=== PATIENT | male | born 1990 | race Caucasian/White ===

== ENCOUNTER 2020-04-07 07:24 | Observation (INO) ==
--- OUTSIDE RECORDS SUMMARY | 2020-04-07 07:28 | External Medical Summary | Continuity of Care Document ---
:1990 Author Name Saeid Velazco, Provider Address Unavailable Unavailable , Care Team Providers Name Role Phone Nela Calzada Unavailable [email or web address] DOMONIQUE CHAO M.D., SHIRA Rios Unavailable Unavailable Unavailable Unavailable Unavailable Assessments Assessed Problems:Eosinophilic esophagitis Problems Eosinophilic esophagitis (530.13) (K20.0) Allergies and Adverse Reactions No Known Drug Allergies (Allergy) Medications Pantoprazole Sodium 40 MG Oral Tablet De layed Release; TAKE 1 TABLET TWICE DAILY 30 MINUTES BEFORE BREAKFAST AND DINNER. STANFORD Pollard Start: 2015 Quantity: 180 Refills: 3 ZyrTEC Allergy 10 MG Oral Capsule Start: 25-Apr-2018 Refills: 0 Procedures History of Oral Surgery Tooth Extraction Status: Completed History of Diagnostic Esophagogastroduodenoscopy Status: Completed Immunizations Immunizations not documented Family History Grandparent Family history of diabetes mellitus (V18.0) (Z83.3) Status: Active Family history of cardiac disorder (V17.49) (Z82.49) Status: Active Grandfather Family history of myocardial infarction (V17.3) (Z82.49) Sta tus: Active Family history of Colon cancer (153.9) (C18.9) Status: Activ e Mother No pertinent family history (V49.89) (Z78.9) Status: Active Father No pertinent family history (V49.89) (Z78.9) Status: Active Social History - Smoking Status Never smoked tobacco Plan of Treatment Planned Observations Planned Goals not documented Results No Known Results Results not documented Encounters Appointment; Nela Pollard CRNP 25-Apr-2018 16:00 Encounter Diagnosis: Problem not documented Appointment; Nela Pollard CRNP 24-Apr-2019 16:00 Encounter Diagnosis: Problem not documented
--- OUTSIDE RECORDS SUMMARY | 2020-04-07 07:28 | External Medical Summary | Continuity of Care Document ---
:1990 Author Name Saeid Velazco, Provider Address Unavailable Unavailable , Care Team Providers Name Role Phone Nela Calzada Unavailable [email or web address] DOMONIQUE CHAO M.D., SHIRA Rios Unavailable Unavailable Unavailable Unavailable Unavailable Assessments Assessed Problems:Eosinophilic esophagitis Problems Eosinophilic esophagitis (530.13) (K20.0) Allergies and Adverse Reactions No Known Drug Allergies (Allergy) Medications ZyrTEC Allergy 10 MG Oral Capsule Start: 25-Apr-2018 Refills: 0 Pantoprazole Sodium 40 MG Oral Tablet De layed Release; TAKE 1 TABLET TWICE DAILY 30 MINUTES BEFORE BREAKFAST AND DINNER. STANFORD Pollard Start: 2015 Quantity: 180 Refills: 3 Procedures History of Oral Surgery Tooth Extraction [...]
[2020-04-07] MEDS ORDERED: DEXAMETHASONE SOD PHOSPHATE 10 MG in SYRINGE 0 ML IV STA (08:10)
[2020-04-07] MEDS ORDERED: GLUCAGON 1 ML IV ONE (08:10)
[2020-04-07] MEDS ORDERED: DiphenhydrAMINE HCL 50 MG/ML VIAL IV STA (08:10)
[2020-04-07 08:23] LABS: Basophils # (auto) 0.03 K/uL (0-0.2); Basophils % (auto) 0.3 %; Eosinophils % (auto) 2.8 %; Hemoglobin 15.5 g/dL (14.0-18.0); Immature Granulocytes # (auto) 0.02 K/uL (0.00-0.02); Immature Granulocytes % (auto) 0.2 %; Lymphocytes # (auto) 1.62 K/uL (1.2-3.4); Lymphocytes % (auto) 15.2 %; Mean Corpuscular Hemoglobin 27.9 pg (25-34); Mean Corpuscular Hgb Conc 33.7 g/dL (32-36); Mean Corpuscular Volume 82.9 fL (80-100); Mean Platelet Volume 9.7 fL (7.4-10.4); Monocytes # (auto) 0.55 K/uL (0.11-0.59); Monocytes % (auto) 5.2 %; Neutrophils # (auto) 8.14 K/uL (1.4-6.5); Neutrophils % (auto) 76.3 %; Platelet Count 314 K/uL (130-400); RDW Coefficient of Variation 13.1 % (11.5-14.5); Red Blood Count 5.55 M/uL (4.7-6.1); White Blood Count 10.66 K/uL (4.8-10.8)
[2020-04-07] MEDS: SODIUM CHLORIDE 0.9% 1000ML 1,000 ML IV SCH ×4 (08:26→15:30)
--- NOTE | 2020-04-07 08:28 | Emergency Department Note ---
Impression & Plan Esophageal obstruction due to food impaction, Eosinophilic esophagitis ED Provider Note NAME: JAMES PATEL AGE: 30 SEX: M ARRIVES VIA: Walk-In INFORMANT: Patient, ED PROVIDER(S): Vasiliy Medrano MD CHIEF COMPLAINT: Food bolus. PLAN: Disposition: Admit MEDICAL DECISION MAKING: The patient is a pleasant 30-year-old gentleman with a past medical history of eosinophilic esophagitis and history of food boluses requiring Endo scopic removal who presents emergency department with acute onset of a food bolus last night at 10 PM when he was eating a sandwich and has subsequently been unable to pass it throughout the night where he is unable to swallow his own saliva. He denies any difficulty breathing. He denies any changes in voice though he feels it is difficult to talk given his secretions. Prior to this he denies any illness and denies fevers, chills, cough, congestion, nausea, vomiting, diarrhea, urinary symptoms. Of note, the patient's partner does report his prior history of vasovagal sensitivity with his food bolus due to the po sitioning of his food bolus. On arrival patient uncomfortable no acute distress, afebrile stable vital signs. He has no stridor. He has no tongue elevation or trismus though he is unable to swallow his saliva. Exam is otherwise unremarkable. Patient was discussed with GI on-call, Dr. Lazaro, [facility], who recommends admission to medicine with plan for endoscopic removal later this morning following another case. Case was d/w Vanessa Garrett, [facility], with Dr. Palacios, [facility] hospitalist who will evaluate the patient for admission. Blood work, chest x-ray and EKG were ordered and pending. EKG unremarkable without evidence of acute ischemia. CXR negative. WBC, H/H, platelets wnl. Chemistry without acidosis. LFTs and electrolytes unremarkable. Patient was ordered for IVF and dexamethasone and diphenhydramine to minimize swelling. Triage Nursing notes reviewed and agree them. Additional history obtained from partner at the bedside. Prior medical records reviewed Vital Signs: reviewed and remarkable for no significant abnormalities Differential diagnosis: Viral syndrome, tonsillitis, streptococcal pharyngitis, mononucleosis, peritonsillar abscess, retropharyngeal abscess, otitis, pneumonia, influenza, as well as other pathologies. ER treatment provided: See below. Diagnostics interpreted by me: ECG: NSR, 82bpm, no ectopy, normal axis, no overt ST elevation of depression. Cardiac Monitoring: An order for continuous cardiac monitoring was placed and demonstrated NSR, 82bpm, no ectopy Laboratory studies: See below Imaging studies: SINGLE VIEW CHEST CLINICAL HISTORY: Retained food bolus. FINDINGS: An AP, portable, upright chest radiograph is compared to chest x-ray and chest CT dated 06/29/2016. The cardiomediastinal silhouette is unremarkable. The lungs and pleural spaces are clear. No pneumothorax is seen. The bony thorax is grossly intact. No radiodense foreign body is identified. IMPRESSION: No active disease in the chest. Consultation(s): GI on-call, Del Hernandez, [facility], with Dr. Whalen, [facility] hospitalist HPI: The patient is a pleasant 30-year-old gentleman with a past medical history of eosinophilic esophagitis and history of food boluses requiring Endo scopic removal who presents emergency department with acute onset of a food bolus last night at 10 PM when he was eating a sandwich and has subsequently been unable to pass it throughout the night where he is unable to swallow his own saliva. He denies any difficulty breathing. He denies any changes in voice though he feels it is difficult to talk given his secretions. Prior to this he denies any illness and denies fevers, chills, cough, congestion, nausea, vomiting, di arrhea, urinary symptoms. Of note, the patient's partner does report his prior history of vasovagal sensitivity with his food bolus due to the positioning of his food bolus. ROS: See above HPI for pertinent positives & negatives. A total of 10 systems reviewed and were otherwise negative. PAST MEDICAL HISTORY:See Below PAST SURGICAL HISTORY:See Below FAMILY HISTORY:See Below SOCIAL HISTORY:See Below HOME MEDICATIONS:See Below ALLERGIES:See Below VITALS:See Below PHYSICAL EXAMINATION: ED COURSE: Critical Care: I have personally spent greater than 35 minutes of critical care time in the direct management of this patient. This includes bedside care, interpretation of diagnostic studies, and testing, discussion with consultants, patient, and family members, and other required patient management activities. This 35 minut es is in excess of all separately billable procedures. Vasiliy Medrano MD Past Med/Surg History Medical History Eosinophilic esophagitis (Acute) Esophageal obstruction due to food impaction (Acute) Social History Preferred Language: Jamaican Communication Ability: Effective Electrical Tester Required: No Beliefs That Will Affect Care: None Current Living Situation: Spouse Feels Safe at Home: Yes Smoking Status: Never smoker Second Hand Exposure: No ; Hx Alcohol Use: Yes Hx Substance Use: No Allergies Allergies Allergy/AdvReac Type Severity Reaction Status Date / Time No Known Allergies Allergy Unknown Unverified 04/07/20 08:05 Home Meds Home Medications Medication Instructions Recorded Confirmed diphenhydramine HCl [Benadryl] 25 mg PO Q6H PRN 04/07/20 04/07/20 multivitamin 1 tab PO DAILY 04/07/20 04/07/20 Previous Rx's Medication Instructions Recorded pantoprazole 40 mg tablet,delayed 40 mg PO BID #180 tab 11/07/19 release Results & Data (ED) Vital Signs Vital Signs - 24 hr 04/07/20 07:31 04/07/20 08:10 Temperature 37.0 C Temperature Source Oral Pulse Rate 98 H Respiratory Rate 18 Blood Pressure 135/82 Blood Pressure Mean 99 Pulse Oximetry 97 Oxygen Delivery Method Room Air Room Air Sepsis Recent Fever Within 48 Hours No Sepsis New/Unexplained Change in Mental Status No Sepsis Action Taken by Nursing No Action Required Laboratory Data Attestation: I reviewed the patient's lab results. Result diagrams: 04/07/20 08:10 04/07/20 08:10 Lab Results 04/07/20 04/07/20 04/07/20 Range/Units 08:10 08:10 08:10 WBC 10.66 (4.8-10.8) K/uL RBC 5.55 (4.7-6.1) M/uL Hgb 15.5 (14.0-18.0) g/dL Hct 46.0 (42-52) % MCV 82.9 (80-100) fL MCH 27.9 (25-34) pg MCHC 33.7 (32-36) g/dL RDW Std Deviation 39.0 (36.4-46.3) fL RDW Coeff of Jojo 13.1 (11.5-14.5) % Plt Count 314 (130-400) K/uL MPV 9.7 (7.4-10.4) fL Immature Gran % (Auto) 0.2 % Neut % (Auto) 76.3 % Lymph % (Auto) 15.2 % [place] % (Auto) 5.2 % Eos % (Auto) 2.8 % Baso % (Auto) 0.3 % Immature Gran # (Auto) 0.02 (0.00-0.02) K/uL Neut # (Auto) 8.14 H (1.4-6.5) K/uL Lymph # (Auto) 1.62 (1.2-3.4) K/uL [place] # (Auto) 0.55 (0.11-0.59) K/uL Eos # (Auto) 0.30 (0-0.5) K/uL Baso # (Auto) 0.03 (0-0.2) K/uL PT 10.9 (9.0-12.0) Seconds INR 1.0 (0.9-1.1) Sodium 141 (136-145) mmol/L Potassium 4.4 (3.5-5.1) mmol/L Chloride 109 H (98-107) mmol/L Carbon Dioxide 27 (21-32) mmol/L Anion Gap 5.0 (3-11) BUN 16 (7-18) mg/dl Creatinine 1.13 (0.6-1.4) mg/dl Est Cr Clr Drug Dosing 96.5 ml/min Est GFR ( Amer) 101.2 Est GFR (Non-Af Amer) 87.4 BUN/Creatinine Ratio 13.7 (10-20) Glucose 107 H (70-99) mg/dl Calcium 9.6 (8.5-10.1) mg/dl Total Bilirubin 0.3 (0.2-1) mg/dl AST 17 (15-37) U/L ALT 33 (12-78) U/L Alkaline Phosphatase 79 (45-117) U/L Total Protein 8.4 H (6.4-8.2) gm/dl Albumin 4.6 (3.4-5.0) gm/dl Globulin 3.8 (2.5-4.0) gm/dl Albumin/Globulin Ratio 1.2 (0.9-2) Lipase 94 (73-393) U/L Administered Medications Discontinued Medications Diphenhydramine HCl (Benadryl) 25 mg IV NOW STA Stop: 04/07/20 08:11 Last Admin: 04/07/20 08:26 Dose: 25 mg Documented by: [id number] Sodium Chloride (Nss 1000ml) 1,000 mls @ 125 mls/hr IV .Q8H TIERRA Stop: 05/07/20 08:14 Last Infusion: 04/07/20 15:34 Dose: 0 mls/hr Documented by: [id number] Infusion: 04/07/20 15:33 Dose: 0 mls/hr Documented by: [id number] Admin: 04/07/20 10:15 Dose: 125 mls/hr Documented by: [id number] Infusion: 04/07/20 10:15 Dose: 125 mls/hr Documented by: [id number] Admin: 04/07/20 08:26 Dose: 125 mls/hr Documented by: [id number] Glucagon (Glucagen) 1 mls @ 1 mls/min IV ONE ONE Stop: 04/07/20 08:11 Last Admin: 04/07/20 08:26 Dose: 1 mls/min Documented by: [id number] Dexamethasone Sodium Phosphate (10 mg/ Syringe) 2.5 mls @ 1 mls/min IV NOW STA Stop: 04/07/20 08:12 Last Admin: 04/07/20 10:15 Dose: 1 mls/min Documented by: [id number] Sodium Chloride (Nss 1000ml) 1,000 mls @ 125 mls/hr IV .Q8H TIERRA Stop: 04/07/20 21:34 Last Infusion: 04/07/20 19:52 Dose: 0 mls/hr Documented by: [id number] Admin: 04/07/20 15:30 Dose: 125 mls/hr Documented by: [id number] Infusion: 04/07/20 15:30 Dose: 125 mls/hr Documented by: [id number] Admin: 04/07/20 10:10 Dose: 125 mls/hr Documented by: [id number] Multivitamins (Multivitamin Tab) 1 tab PO DAILY TIERRA Stop: 05/07/20 09:34 Last Admin: 04/07/20 12:07 Dose: Not Given Documented by: [id number] Pantoprazole Sodium (Protonix) 40 mg PO BID TIERRA Stop: 05/07/20 09:34 Last Admin: 04/07/20 12:07 Dose: Not Given Documented by: [id number] Blood Pressure Blood Pressure Findings: Normal blood pressure Discharge Plan Visit Data *Final* Discharge Date/Time: 04/07/20 09:01 Chief Complaint: Vomiting Stated Complaint: VOMITING,UNABLE TO SWALLOW ED Provider: Vasiliy Medrano Discharge Problem: Esophageal obstruction due to food impaction, Eosinophilic esophagitis Patient Disposition: Admitted As Inpatient Discharge Instructions Interventions: ED Discharge Assessment Last Done: 04/07/20 09:01
[2020-04-07 08:35] LABS: Prothrombin Time 10.9 Seconds (9.0-12.0)
[2020-04-07 08:40] LABS: Albumin Level 4.6 gm/dl (3.4-5.0); BUN Creatinine Ratio 13.7 (10-20); Calcium 9.6 mg/dl (8.5-10.1); Creatinine Clr Calc Pharmacy 96.5 ml/min; Est GFR (African American) 101.2; Est GFR (Non-African American) 87.4; Potassium 4.4 mmol/L (3.5-5.1)
[2020-04-07 08:43] LABS: Albumin Globulin Ratio 1.2 (0.9-2); Bilirubin,Total 0.3 mg/dl (0.2-1); Globulin 3.8 gm/dl (2.5-4.0); Total Protein 8.4 gm/dl (6.4-8.2)
--- NOTE | 2020-04-07 08:49 | History & Physical Report ---
Date of Service April 07, 2020 Assessment & Plan (1) Esophageal obstruction due to food impaction: - Admit to med/surg for observation - GI consulted - Dr. Lazaro to perform EGD today for removal of food impaction/bolus - NPO - Given benadryl 25 mg IV and decadron 10 mg IV in the ER, pt had taken benadryl orally last evening when he felt food bolus not clearing. Does not use benadryl routinely. - Continue IVF - Pain control, antiemetics IV - If food impaction cleared and ok with GI after EGD, may trial clears and advance diet as tolerates, will consider discharge, monitor - Follows with Dr. Garnett as outpatient, will need follow up within 1-2 weeks - CXR completed- (2) Eosinophilic esophagitis: - Hx of such since a child, no family hx of such. 4 yo son also has been diagnosed with this. - Continue panotprazole 40 mg BID, pt reports had been taking once daily as reactions had been few and far between. - Rehabilitation Tech referral recommended - has not previously had this done (3) DVT prophylaxis: - teds CODE: Full code Dispo: From home, possible DC within 24 hours. History of Present Illness Primary Care Provider: David Radford MD This is a 30 yo M with PMHx of eosinophilic esophagitis, who presents after consuming a sandwich last evening, with inability to swallow, dry heaves and agnes oling at the mouth. He reports this worsened around 10pm last night. He took a benadryl tablet to help with symptoms. He continued to have excessive drooling and had to spit it out all night into a bucket, hoping that this would clear on its own, this morning came to the ER. He had a similar episode in 2016 where he was also eating a sandwich, and food bolus occurred. He was brought into the hospital for an EGD to remove the full bolus but it cleared on its own on the way to have a EGD completed. He has suffered from this multiple times as a child however this is only the second time that he has presented to the ER due to not clearing. His is present at bedside and supplies the majority of the history. He denies any difficulty breathing, or tightness in the throat. He denies any changes in medications recently. Pt follows with Dr. Garnett as an oupt and takes omeprazole daily. He has had some recent seasonal allergies, but otherwise has been in his normal state of health. He denies any known family history of eosinophilic esophagitis, esophageal cancers, stomach cancers, crohns disease, ulcerative colitis, achalasia. notes their oldest son, 4 yo, has eosinophilic esophagitis though. He himself has not had allergy testing in the past. Allergies Allergy/AdvReac Type Severity Reaction Status Date / Time No Known Allergies Allergy Unknown Unverified 04/07/20 08:05 Home Medications Home Medications Medication Instructions Recorded Confirmed Type pantoprazole 40 mg tablet,delayed 40 mg PO BID #180 tab 11/07/19 04/07/20 Rx release diphenhydramine HCl [Benadryl] 25 mg PO Q6H PRN 04/07/20 04/07/20 History multivitamin 1 tab PO DAILY 04/07/20 04/07/20 History Past Med/Surg History Social History Preferred Language: Slovenian Communication Ability: Effective Driller'S Assistant Required: No Beliefs That Will Affect Care: None Current Living Situation: Spouse Feels Safe at Home: Yes Smoking Status: Never smoker Second Hand Exposure: No ; Hx Alcohol Use: Yes Hx Substance Use: No Review of Systems Review of Systems: Constitutional: No fever, sweats or chills Eyes: No diplopia, no worsening or blurred vision ENT: normal hearing, + trouble swallowing, + drooling excessively Respiratory: No cough, sputum, dyspnea at rest or on exertion Cardiovascular: No chest pain, tightness or palpitations Abdomen: No pain, + dry heaves due to inability to swallow, no vomiting, diarrhea or constipation Musculoskeletal: No joint pain, calf pain, swelling Neurologic: No weakness, numbness/tingling, or balance problems Psychiatric: No anxiety or depression Skin: No rash or itch Physical Exam Physical Exam: General: awake, alert, no apparent distress Head: Normocephalic, atraumatic ENT: PERRL, EOMI, no pharyngeal exudate, + mild erythema in posterior pharynx, mucous membranes moist, + excessive salivation, clear frothy, no blood, when asked to swallow he can but then proceeds to dry heave. No cervical lymphadenopathy. Chest: Clear to auscultation, on room air, no adventitious breath sounds, no respiratory distress. Cardiac: Regular rate and rhythm, no murmur, no JVD, normal peripheral pulses, good capillary refill Abdominal: NABS x 4 quadrants, soft, nontender to palpation, no rebound, guarding or tenderness Extremities: Normal inspection, no peripheral edema or erythema, calfs nontender to palpation Psych: Normal mood and affect Neuro: AAO x 3, strength intact bilaterally and rated 5/5, no motor deficits, speech is clear, no peripheral sensory deficits Results & Data Results & Data ([facility]) Vital Signs (Past 12 Hours) Vital Signs Temp Pulse Pulse Resp BP BP Pulse Ox 04/07/20 08:38 81 20 105/78 96 04/07/20 07:31 37.0 C 98 H 18 135/82 97 Diagnostic Findings SINGLE VIEW CHEST CLINICAL HISTORY: Retained food bolus. FINDINGS: An AP, portable, upright chest radiograph is compared to chest x-ray and chest CT dated 06/29/2016. The cardiomediastinal silhouette is unremarkable. The lungs and pleural spaces are clear. No pneumothorax is seen. The bony thorax is grossly intact. No radiodense foreign body is identified. IMPRESSION: No active disease in the chest. ACT 112: Negative or not required by law. Electronically signed by: Enrique Del Angel M.D. 04/07/2020 9:04 AM ECG Additional Comments: 07-APR-2020 08:33:31 [facility]-EDSTAT ROUTINE RETRIEVAL Normal sinus rhythm Normal ECG When compared with ECG of 29-JUN-2016 12:01, No significant change was found 25mm/s 10mm/mV 150Hz 9.0.9 12SL 241 NOHELIA: 16 Referred by: REFERRED SELF Unconfirmed Vent. rate 82 BPM AL interval 158 ms QRS duration 88 ms QT/QTc 386/450 ms P-R-T axes 41 74 41 Code Status & VTE Plan Code Status Full code - discussed with pt and at bedside. VTE Prophylaxis Plan VTE Prophylaxis will be ordered: Yes Supervising Physician Co-Signing Physician Notes Patient was seen and examined independently I discussed the case with Vanessa BETANCUR 30-year-old male history of eosinophilic esophagitis who presents after having a sandwich with feelings he cannot swallow. Patient's been spitting up saliva. Patient has what appears to be of food impaction in his esophagus after evaluation in the emergency department. Attempts to remove this food impaction were done with glucagon without relief. Patient will be seen by gastroenterology for likely endoscopy to remove food bolus. Otherwise patient is without discomfort he is holding a spit up bag and spitting saliva into the bag. Vital signs are reviewed Cardiac exam is regular no murmurs are heard Lungs are currently clear Abdomen normoactive bowel sounds soft and nontender Suspected food impaction with need for endoscopy. Reports it is eosinophilic esophagitis patient continues on proton pump inhibitor and will follow-up with gastroenterology after this procedure hopeful to be discharged today I reviewed pertinent past medical social family history and also the plan of care and agree with the plan of care. Any exceptions will be noted below PG Care Time/CCT Total # of Minutes Spent Total Time Spent with Patient: Total time spent is greater than 50% in coordination of care (as documented) at patient's floor/unit and/or counseling patient: Coding Level of Care Code 46173 OBS Care - Level 3 Diagnoses Esophageal obstruction due to food impaction K22.2; T18.128A Eosinophilic esophagitis K20.0 DVT prophylaxis Z29.9
--- NOTE | 2020-04-07 09:06 | XRay Report ---
SINGLE VIEW CHEST CLINICAL HISTORY: Retained food bolus. FINDINGS: An AP, portable, upright chest radiograph is compared to chest x-ray and chest CT dated 06/18. The cardiomediastinal silhouette is unremarkable. The lungs and pleural spaces are clear. No pneumothorax is seen. The bony thorax is grossly intact. No radiodense foreign body is identified. IMPRESSION: No active disease in the chest. ACT 112: Negative or not required by law. Electronically signed by: Enrique Del Angel M.D. 04/07/2020 9:04 AM
[2020-04-07] MEDS ORDERED: ONDANSETRON INJ 2 MG/ML 2 ML VIAL IV PRN ×2 (09:35→13:31)
[2020-04-07] MEDS ORDERED: PANTOprazole 40 MG TAB PO SCH (09:35)
[2020-04-07] MEDS ORDERED: MULTIVITAMIN TAB PO SCH (09:35)
[2020-04-07] MEDS ORDERED: MoRPHine SULFATE 2 MG/ML CARP IV PRN (09:35)
--- NOTE | 2020-04-07 11:07 | Gastrointestinal Consultation ---
Date of Consultation April 07, 2020 Assessment & Plan (1) Eosinophilic esophagitis: (2) Esophageal obstruction due to food impaction: Proceed with EGD. risks/benefits and procedure discussed with patient, who agrees to proceed continue PPI NPO History of Present Illness Attending Physician: Levy Palacios MD 30 YO male with hx EOE presents with dysphagia. He consumed a turkey sandwich last night and has had dysphagia since then, also with vomiting and drooling. Inability to swallow secretions. This has happened before to him in 2016 where he had an EGD. He is on daily PPI. Labs reviewed, VSS. Allergies Allergy/AdvReac Type Severity Reaction Status Date / Time No Known Allergies Allergy Unknown Unverified 04/07/20 08:05 Home Medications Home Medications Medication Instructions Recorded Confirmed Type pantoprazole 40 mg tablet,delayed 40 mg PO BID #180 tab 11/07/19 04/07/20 Rx release diphenhydramine HCl [Benadryl] 25 mg PO Q6H PRN 04/07/20 04/07/20 History multivitamin 1 tab PO DAILY 04/07/20 04/07/20 History Patient History Social History Preferred Language: Russian Communication Ability: Effective Crushing Foreman Required: No Beliefs That Will Affect Care: None Current Living Situation: Spouse Other Information That Helps Us Care for You: No Feels Safe at Home: Yes Safety Concerns: Feels Safe At This Time Smoking Status: Never smoker Do You Dip or Chew Tobacco: No ; Second Hand Exposure: No ; Tobacco Cessation Education Requested by Patient: No Hx Alcohol Use: Yes Hx Substance Use: No Review of Systems Constitutional: no fever, no chills and no weight loss Eyes: as per Subjective / HPI Ear, Nose, Mouth, Throat: as per Subjective / HPI Respiratory: no dyspnea and no dyspnea on exertion Cardiovascular: no chest pain and no palpitations Gastrointestinal: as per Subjective / HPI Musculoskeletal: no joint pain and no swelling Integumentary: no rash and no lesions Neurologic: no numbness and no paresthesia Psychiatric: no depression and no anxiety Endocrine: no fatigue Hematologic / Lymphatic: no easy bleeding and no easy bruising Physical Exam Constitutional: WD/WN, vitals as above Eyes: EOM intact bilaterally Neck: normal visual inspection Respiratory: normal respiratory effort, lungs clear to auscultation Cardiovascular: RRR, no murmur, no edema Gastrointestinal (Abdomen): Inspection/Auscultation: abdomen normal to inspection; abdomen not distended Percussion/Palpation: abdomen soft; abdomen nontender and no hepatosplenomegaly Musculoskeletal: Extremities: no cyanosis Gait: normal gait Skin: no rashes, warm and dry Neurologic: moves all extremities Psychiatric: A+Ox3, euthymic affect Results & Data ([facility]) Vital Signs (Past 12 Hours) Vital Signs Temp Pulse Pulse Resp BP BP Pulse Ox 04/07/20 09:01 36.5 C 85 16 119/54 L 96 04/07/20 08:38 81 20 105/78 96 04/07/20 07:31 37.0 C 98 H 18 135/82 97 PG Care Time/CCT Total # of Minutes Spent Total Time Spent with Patient: Total time spent is greater than 50% in coordination of care (as documented) at patient's floor/unit and/or counseling patient: Coding Level of Care Code 25762 Office/OBS Consult Lvl 4 Diagnoses Eosinophilic esophagitis K20.0 Esophageal obstruction due to food impaction K22.2; T18.128A
[2020-04-07] MEDS ORDERED: PROPOFOL IV EMULSION 10 MG/ML 20 ML VIAL IV ONE (11:47)
[2020-04-07] MEDS ORDERED: fentaNYL citrate 100 MCG/2 ML VIAL ONE (11:47)
[2020-04-07] MEDS ORDERED: ONDANSETRON INJ 2 MG/ML 2 ML VIAL ONE (11:47)
[2020-04-07] MEDS ORDERED: SUCCINYLCHOLINE CHLORIDE 20 MG/ML 10 ML VIAL IV ONE (11:47)
[2020-04-07] MEDS ORDERED: ROCURONIUM BROMIDE 10 MG/ML 5 ML VIAL IV ONE (11:47)
[2020-04-07] MEDS ORDERED: LIDOCAINE HCL 2% 2 ML VIAL/AMP(20MG/ML) INFIL ONE (11:47)
--- NOTE | 2020-04-07 13:30 | Anesthesiology Consultation ---
Date of Service April 07, 2020 Assessment & Plan ASA ASA3 Proposed Anesthesia Anesthesia Type: General Risk / Benefits Reviewed With: PT / POA / Parent / Guardian, Accepts Plan and Informed Consent Obtained History Surgery Operation Date: 04/07/20 13:00 Proposed Procedures p EGD Foreign Body Removal - Bhavik Lazaro MD Height/Weight Height: 5 ft 9 in Weight: 74 kg Allergies Allergy/AdvReac Type Severity Reaction Status Date / Time No Known Allergies Allergy Unknown Unverified 04/07/20 08:05 Medications Home Medications Medication Instructions Recorded Confirmed Last Taken pantoprazole 40 mg tablet,delayed 40 mg PO BID #180 tab 11/07/19 04/07/20 04/06/20 release diphenhydramine HCl [Benadryl] 25 mg PO Q6H PRN 04/07/20 04/07/20 04/06/20 23:00 25 mg multivitamin 1 tab PO DAILY 04/07/20 04/07/20 04/06/20 Active Medications Generic Name Dose Route Start Last Admin Trade Name Freq PRN Reason Stop Dose Admin Sodium Chloride 1,000 mls @ 125 mls/hr 04/07/20 09:35 04/07/20 10:10 Nss 1000ml IV 04/07/20 21:34 125 mls/hr .Q8H TIERRA Administration Multivitamins 1 tab 04/07/20 09:35 04/07/20 12:07 Multivitamin Tab PO 05/07/20 09:34 Not Given DAILY TIERRA Pantoprazole Sodium 40 mg 04/07/20 09:35 04/07/20 12:07 Protonix PO 05/07/20 09:34 Not Given BID TIERRA NPO Date Last Intake of Fluids: 04/07/20 Time Last Intake of Fluids: 00:00 Date Last Intake of Solids: 04/07/20 Time Last Intake of Solids: 00:00 Exercise / Class Metabolic Activity II 4-5 Yardwork/Stairs/Walk up hill Past Anesthesia History No Hx of Anesthesia Complications and No Family Hx of Anesthesia Complications History of PONV No Hx of PONV and No Hx of Motion Sickness Social History Smoking Status: Never smoker Do You Dip or Chew Tobacco: No Hx Alcohol Use: Yes alcohol intake frequency: other Alcohol Intake Frequency Comment: occasionally, 1 to 2 a week Hx Substance Use: No substance use type: does not use Review of Systems denies fever/cough/ colds/ chest pain/ SOB/ LEAH Constitutional: no fever and no chills Respiratory: no cough and no dyspnea denies LEAH Cardiovascular: no chest pain and no dyspnea on exertion Physical Exam Vital Signs Last Vital Signs Temp 36.5 C 04/07/20 09:01 Pulse 85 04/07/20 09:01 Resp 16 04/07/20 09:01 BP 119/54 L 04/07/20 09:01 Pulse Ox 96 04/07/20 09:01 ENMT Mouth: no TMJ abnormality and no dentition abnormality Thyromental Distance: > or= 3.5 Finger Breadths Mallampati Class: II Neck + facial hair; neck extension not limited Respiratory normal respiratory effort; no respiratory distress Auscultation: lungs clear to auscultation bilaterally Cardiovascular Rate/Rhythm: regular rate and regular rhythm Neurologic moves all extremities Psychiatric Orientation: alert and oriented x 3 Testing Laboratory Results 04/07/20 08:10 04/07/20 08:10 PT 10.9 Seconds (9.0-12.0) 04/07/20 08:10 INR 1.0 (0.9-1.1) 04/07/20 08:10 Blood Type O Positive 04/07/20 08:25 Antibody Screen NEGATIVE 04/07/20 08:25
[2020-04-07] MEDS ORDERED: ePHEDrine sulfate 50 MG/ML AMP IV PRN (13:31)
[2020-04-07] MEDS ORDERED: HYDROmorphone INJ 2 MG/ML SYR/VIAL IV PRN (13:31)
[2020-04-07] MEDS ORDERED: fentaNYL citrate 100 MCG/2 ML VIAL IV PRN (13:31)
[2020-04-07] MEDS ORDERED: ATROPINE SULFATE 0.1 MG/ML 10ML SYR IV PRN (13:31)
--- NOTE | 2020-04-07 14:35 | Electrocardiogram Report ---
Test Reason : Blood Pressure : / mmHG Vent. Rate : 082 BPM Atrial Rate : 082 BPM P-R Int : 158 ms QRS Dur : 088 ms QT Int : 386 ms P-R-T Axes : 041 074 041 degrees QTc Int : 450 ms Normal sinus rhythm Normal ECG When compared with ECG of 29-JUN-2016 12:01, No significant change was found Confirmed by Hebert Ellis ([id number]) on 04/07/2020 2:34:35 PM Referred By: REFERRED SELF Confirmed By:Hebert Ellsi
--- NOTE | 2020-04-07 14:41 | GI REPORT ---
Patient Name: Phillip Pathak Procedure Date: 04/07/2020 1:54 PM Date of : 1990 Admit Type: Inpatient Age: 30 Gender: Male Attending MD: Bhavik Lazaro MD Procedure: Upper GI endoscopy Providers: Bhavik Lazaro MD Referring MD: Levy Palacios Indications: Dysphagia, Odynophagia, Foreign body in the esophagus Medicines: Monitored Anesthesia Care Complications: No immediate complications. Estimated blood loss: None. Estimated Blood Loss: Estimated blood loss: none. Procedure: Pre-Anesthesia Assessment: - Prior Anticoagulants: The patient has taken no previous anticoagulant or antiplatelet agents. - ASA Grade Assessment: II - A patient with mild systemic disease. After obtaining informed consent, the endoscope was passed under direct vision. Throughout the procedure, the patient's blood pressure, pulse, and oxygen saturations were monitored continuously. The Endoscope was introduced through the mouth, and advanced to the second part of duodenum. The upper GI endoscopy was accomplished without difficulty. The patient tolerated the procedure well. Findings: Food was found in the middle third of the esophagus. this was pushed into the stomach using the upper endoscope successfully. Mucosal changes including ringed esophagus and longitudinal furrows were found in the middle third of the esophagus and in the lower third of the esophagus. Esophageal findings were graded using the Eosinophilic Esophagitis Endoscopic Reference Score (EoE-EREFS) as: Stricture present. A TTS dilator was passed through the scope. Dilation with a 15-16.5-18 mm balloon dilator was performed to 18 mm. a mucosal tear was created with dilation. To repair the defect, the tissue edges were approximated and one hemostatic clip was successfully placed. Closure of the defect was successful. There was no bleeding at the end of the procedure. Localized mild inflammation characterized by erythema was found in the gastric antrum. Biopsies were taken with a cold forceps for Helicobacter pylori testing. Estimated blood loss: none. The duodenal bulb and second portion of the duodenum were normal. Impression: - Food in the middle third of the esophagus. - Esophageal mucosal changes secondary to eosinophilic esophagitis. Dilated. Clip was placed. - Acute gastritis. Biopsied. - Normal duodenal bulb and second portion of the duodenum. Recommendation: - Return patient to [facility] for [facility] care. - Clear liquid diet today. - Await pathology results. - protonix 40 mg BID Bhavik Lazaro MD 04/07/2020 2:40:31 PM This report has been signed electronically. Note Initiated On: 04/07/2020 1:54 PM Number of Addenda: 0 I attest to the content of the Intraoperative Record and orders documented therein, exceptions below {[id number]}
--- NOTE | 2020-04-07 14:45 | Procedure Note ---
Procedure Note Date of Service April 07, 2020 GI brief post op note EGD findings: food stuck in mid-esophagus, EOE. food pushed into stomach with scope successfully. stricture from EOE in middle esophagus, dilated to 18 mm with mucosal tear post dilation, clip placed. gastritis, biopsied. recs: PPI BID clear liquid diet today repeat EGD in 2 months chew food thoroughly, small meals supportive care Bhavik Lazaro MD Gastroenterology Coding
--- NOTE | 2020-04-07 15:09 | Anesthesiology Progress Note ---
Date of Service April 07, 2020 Anesthesia Post Procedure Vital Signs Vital Signs: Temp Pulse Pulse Pulse Resp BP BP 04/07/20 15:05 36.8 C 98 H 21 106/68 04/07/20 14:55 90 14 99/60 L 04/07/20 14:45 90 15 111/66 04/07/20 14:35 92 H 17 114/63 04/07/20 14:25 36.0 C L 97 H 15 120/71 04/07/20 09:01 36.5 C 85 16 04/07/20 08:38 81 20 04/07/20 07:31 37.0 C 98 H 18 135/82 BP Pulse Ox 04/07/20 15:05 96 04/07/20 14:55 96 04/07/20 14:45 99 04/07/20 14:35 99 04/07/20 14:25 97 04/07/20 09:01 119/54 L 96 04/07/20 08:38 105/78 96 04/07/20 07:31 97 Transfer of Care Handoff Completed per policy Notes Mental Status: alert / awake / arousable and participated in evaluation Patient Amnestic to Procedure: Yes Nausea / Vomiting: adequately controlled Pain: adequately controlled Airway Patency, RR, SpO2: stable & adequate BP & HR: stable & adequate Hydration State: stable & adequate Anesthetic Complications: no major complications apparent and Pt Satisfied with anesthetic care
--- NOTE | 2020-04-07 18:52 | Discharge Summary ---
Date of Service April 07, 2020 Admission HPI Per Admitting Provider This is a 30 yo M with PMHx of eosinophilic esophagitis, who presents after consuming a sandwich last evening, with inability to swallow, dry heaves and drooling at the mouth. He reports this worsened around 10pm last night. He took a benadryl tablet to help with symptoms. He continued to have excessive drooling and had to spit it out all night into a bucket, hoping that this would clear on its own, this morning came to the ER. He had a similar episode in 2016 where he was also eating a sandwich, and food bolus occurred. He was brought into the hospital for an EGD to remove the full bolus but it cleared on its own on the way to have a EGD completed. He has suffered from this multiple times as a child however this is only the second time that he has presented to the ER due to not clearing. His is present at bedside and supplies the majority of the history. He denies any difficulty breathing, or tightness in the throat. He denies any changes in medications recently. Pt follows with Dr. Garnett as an oupt and takes omeprazole daily. He has had some recent seasonal allergies, but otherwise has been in his normal state of health. He denies any known family history of eosinophilic esophagitis , esophageal cancers, stomach cancers, crohns disease, ulcerative colitis, achalasia. notes their oldest son, 4 yo, has eosinophilic esophagitis though. He himself has not had allergy testing in the past. Admission Exam Per Admitting Provider Physical Exam: General: awake, alert, no apparent distress Head: Normocephalic, atraumatic ENT: PERRL, EOMI, no pharyngeal exudate, + mild erythema in posterior pharynx, mucous membranes moist, + excessive salivation, clear frothy, no blood, when asked to swallow he can but then proceeds to dry heave. No cervical lymphadenopathy. Chest: Clear to auscultation, on room air, no adventitious breath sounds, no respiratory distress. Cardiac: Regular rate and rhythm, no murmur, no JVD, normal peripheral pulses, good capillary refill Abdominal: NABS x 4 quadrants, soft, nontender to palpation, no rebound, guarding or tenderness Extremities: Normal inspection, no peripheral edema or erythema, calfs nontender to palpation Psych: Normal mood and affect Neuro: AAO x 3, strength intact bilaterally and rated 5/5, no motor deficits, speech is clear, no peripheral sensory deficits Principal Diagnosis Esophageal obstruction due to food impaction Discharge Exam Physical Exam: General: awake, alert, no apparent distress Head: Normocephalic, atraumatic ENT: PERRL, EOMI, no pharyngeal exudate, + mild erythema in posterior pharynx, mucous membranes moist, no excess salivation, when asked to swallow he can do so without difficulty. Chest: Clear to auscultation, on room air, no adventitious breath sounds, no respiratory distress. Cardiac: Regular rate and rhythm, no murmur, no JVD, normal peripheral pulses, good capillary refill Abdominal: NABS x 4 quadrants, soft, nontender to palpation, no rebound, guarding or tenderness Extremities: Normal inspection, no peripheral edema or erythema, calfs nontender to palpation Psych: Normal mood and affect Neuro: AAO x 3, strength intact bilaterally and rated 5/5, no motor deficits, speech is clear, no peripheral sensory deficits Discharge Data Allergies Allergy/AdvReac Type Severity Reaction Status Date / Time No Known Allergies Allergy Unknown Unverified 04/07/20 08:05 Consultations 04/07/20 08:15 ED Decision to Admit Stat 04/07/20 09:35 Consult Case Management - Discharge Planning Routine Consult Gastroenterology Routine Procedures Performed Operation Date: 04/07/20 13:00 Actual Procedures p EGD Foreign Body Removal(Not Applicable) - Bhavik Lazaro MD Hospital Course (1) Esophageal obstruction due to food impaction: - Admit to med/surg for observation - GI consulted - Dr. Lazaro to perform EGD today for removal of food impaction/bolus - Underwent EGD today Impression: - Food in the middle third of the esophagus. - Esophageal mucosal changes secondary to eosinophilic esophagitis. Dilated. Clip was placed. - Acute gastritis. Biopsied. - Normal duodenal bulb and second portion of the duodenum. - Tolerated clear liquid diet after procedure, no difficulty with swallowing - Given benadryl 25 mg IV and decadron 10 mg IV in the ER, pt had taken benadryl orally last evening when he felt food bolus not clearing. Does not use benadryl routinely. - Received IVF 20 while in the hospital, tolerated clears - Pain control, antiemetics IV - Follows with Dr. Garnett as outpatient, will need follow up within 1-2 weeks - CXR completed (2) Eosinophilic esophagitis: - Hx of such since a child, no family hx of such. 4 yo son also has been diagnosed with this. - Continue panotprazole 40 mg BID, pt reports had been taking once daily as reactions had been few and far between. - Gr[employer] Home [employer] referral recommended - has not previously had this done - f/u within 1-2 weeks (3) DVT prophylaxis: - teds CODE: Full code Dispo: From home, possible DC within 24 hours. Total Time Total Time Spent Total Time Spent (In Minutes): 35 min Discharge Plan Discharge Items Patient Disposition: Home - Self-Care Reason For Visit: FOOD BOLUS,VOMITING Discharge Diagnosis: Esophageal obstruction by food impaction Activity: Resume your previous activity Activity Comment: As tolerated Bathing: No limitations Sexual Activity: When tolerated Exercise/Sports: Gradually increase as tolerated Driving/Machine Use: No limitations Weightbearing: Full weightbearing Non-emergency contact: Primary Care Provider Call non-emergency contact if: you have any medication questions, your symptoms worsen, your pain is worsening and you have a fever Follow-up/Referrals: David Radford III, MD [Primary Care Provider] - Diet: Regular Addtl Attending Provider Instructions: You were admitted to [facility] due to difficulty swallowing, drooling, and pain and diagnosed with esophageal obstruction due to food impaction. During your stay here you were treated with supportive care, medications and underwent an EGD procedure by Dr. Lazaro where food bolus was pushed through the esophagus into the stomach and your symptoms improved. Imaging studies which were completed include EGD, and were abnormal which showed food bolus. During the procedure a small clip was placed due to a mucosal tear. This clip will fall off as the area heals. You do not need any further antibiotics for this. He tolerated clear liquids and voided, stable for discharge home. Medications: Continue taking you medications as prescribed Appointments: Please call to schedule the following appointments: Follow up with PCP within 1 week. Follow up with GI, Dr. Garnett within 2 weeks. Follow up with allergy for testing, within the next 2-3 weeks. Pending Studies at Discharge: No Stand-Alone Forms: [employer], Work/School Release (Inpt), Smoking Cessation Medications and DC Order Prescriptions: Continued pantoprazole 40 mg tablet,delayed release (DR/EC) 40 mg PO BID Qty: 180 RF: 3 multivitamin Tablet 1 tab PO DAILY RF: 0 diphenhydramine HCl [Benadryl] 25 mg Capsule 25 mg PO Q6H PRN (Reason: Sleep or Itching) RF: 0 Discharge Orders: Discharge Order (Routine); Ordered 04/07/20 Ordered By: Sadie Gandhi/Other Patient Handouts: Eosinophilic Esophagitis (EoE) Admission Data Admit Date/Time: 04/07/20 08:25 Attending Provider: Levy Palacios Admit Provider: Levy Palacios Primary Care Provider: David Radford III Other Providers: Sadie Garrett ; Levy Palacios ; Bhavik Lazaro Coding Level of Care Code Admit/DC Same Day >8hr Level 3 Diagnoses Esophageal obstruction due to food impaction K22.2; T18.128A Eosinophilic esophagitis K20.0 DVT prophylaxis Z29.9
== END 2020-04-07 20:50 | disposition home or self-care (01) ==
LOC: 3E 07:24 → ED 07:24 → 3E 09:01